=== PATIENT | female | born 1985 ===

== ENCOUNTER 2017-11-10 10:14 | Emergency (ER) | payer OTHER ==
[~2017-11-10] VITALS: Ht 167.6 cm; Wt 86.2 kg
== END 2017-11-10 12:30 | disposition home or self-care (01) ==
LOC: ER 10:14
DX: S80.02XA Contusion of left knee, initial encounter (principal); W18.39XA Other fall on same level, initial encounter; Y93.01 Activity, walking, marching and hiking; Y92.480 Sidewalk as the place of occurrence of the external cause; Y99.8 Other external cause status